=== PATIENT | female | born 1935 | race Caucasian/White ===

== ENCOUNTER 2019-02-07 08:42 | Emergency (ER) | payer OTHER ==
[2019-02-07] MEDS ORDERED: MORPHINE SULFATE 10 MG/ML INJ IV ONE ×2 (09:45→19:50)
--- NOTE | 2019-02-07 10:44 | RADIOLOGY REPORT (SQ) ---
EXAM DESCRIPTION: CHEST SINGLE VIEW COMPLETED DATE/TIME: 02/07/2019 10:28 am REASON FOR STUDY: injury COMPARISON: None. NUMBER OF VIEWS: One view. TECHNIQUE: Single frontal radiographic view of the chest acquired. LIMITATIONS: None. FINDINGS: LUNGS AND PLEURA: No opacities, masses or pneumothorax. No pleural effusion. MEDIASTINUM AND HILAR STRUCTURES: No masses. Contour normal. HEART AND VASCULAR STRUCTURES: Heart normal in size. Normal vasculature. BONES: No acute findings. HARDWARE: None in the chest. OTHER: No other significant finding. IMPRESSION: NO SIGNIFICANT RADIOGRAPHIC FINDING IN THE CHEST. TECHNICAL DOCUMENTATION: JOB ID: [id number] [employer]- All Rights Reserved Reading location - IP/workstation name: [email or web address]
--- NOTE | 2019-02-07 10:49 | RADIOLOGY REPORT (SQ) ---
EXAM DESCRIPTION: HIP RIGHT AP/LATERAL COMPLETED DATE/TIME: 02/07/2019 10:28 am REASON FOR STUDY: injury COMPARISON: None. NUMBER OF VIEWS: Two views. TECHNIQUE: AP and frog-leg view of the right hip. LIMITATIONS: None. FINDINGS: MINERALIZATION: Normal. RIGHT HIP: There is a comminuted intratrochanteric right hip fracture. OPPOSITE HIP: No fracture or dislocation. No worrisome bone lesions. SOFT TISSUES: No findings. OTHER: No other significant finding. IMPRESSION: Comminuted intratrochanteric right hip fracture. COMMENT: Pelvic fractures are often occult on plain radiographs. If strong clinical suspicion for f racture, recommend CT or MR. TECHNICAL DOCUMENTATION: JOB ID: [id number] [employer]- All Rights Reserved Reading location - IP/workstation name: [email or web address]
--- NOTE | 2019-02-07 10:49 | RADIOLOGY REPORT (SQ) ---
EXAM DESCRIPTION: KNEE RIGHT 3 VIEWS COMPLETED DATE/TIME: 02/07/2019 10:28 am REASON FOR STUDY: injury COMPARISON: None. NUMBER OF VIEWS: Three views. TECHNIQUE: AP, lateral, and sunrise patella radiographic images acquired of the right knee. LIMITATIONS: None. FINDINGS: MINERALIZATION: Normal. BONES: No acute fracture or dislocation. No worrisome bone lesions. JOINT: Prior total knee arthroplasty. SOFT TISSUES: No soft tissue swelling. No radio-opaque foreign body. OTHER: No other significant finding. IMPRESSION: Postsurgical changes with prior total arthroplasty. No acute findings. TECHNICAL DOCUMENTATION: JOB ID: [id number] [employer]- All Rights Reserved Reading location - IP/workstation name: [email or web address]
[2019-02-07 11:23] LABS: ABSOLUTE LYMPHOCYTES (AUTO) 1.1 10^3/uL (0.5-4.7); ABSOLUTE MONOCYTES (AUTO) 0.5 10^3/uL (0.1-1.4); ABSOLUTE NEUT (AUTO) 7.2 10^3/uL (1.7-8.2); BASOPHILS % (AUTO) 0.3 % (0-2); EOSINOPHILS % (AUTO) 0.4 % (0-6); HEMATOCRIT 34.1 % (36.0-47.0); HEMOGLOBIN 11.2 g/dL (12.0-15.5); LYMPHOCYTES % (AUTO) 12.2 % (13-45); MEAN CORPUSCULAR HEMOGLOBIN 30.4 pg (27.0-33.4); MEAN CORPUSCULAR HGB CONC 32.8 g/dL (32.0-36.0); MEAN CORPUSCULAR VOLUME 93 fl (80-97); PLATELET COUNT 255 10^3/uL (150-450); RED BLOOD COUNT 3.68 10^6/uL (3.72-5.28); RED CELL DISTRIBUTION WIDTH 13.7 % (11.5-14.0); SEGMENTED NEUTROPHILS % (AUTO) 81.1 % (42-78); TOTAL CELLS COUNTED % (AUTO) 100 %; WHITE BLOOD COUNT 8.9 10^3/uL (4.0-10.5)
[2019-02-07 11:46] LABS: ANION GAP 8 (5-19); BLOOD UREA NITROGEN 47 mg/dL (7-20); CALCIUM 9.8 mg/dL (8.4-10.2); CARBON DIOXIDE 27 mmol/L (22-30); CHLORIDE 103 mmol/L (98-107); GLUCOSE 117 mg/dL (75-110); POTASSIUM 4.6 mmol/L (3.6-5.0)
[2019-02-07 11:49] LABS: INTERNATIONAL RATION (INR) 1.07
[2019-02-07 11:50] LABS: PARTIAL THROMBOPLASTIN TIME 31.5 SEC (23.5-35.8)
--- NOTE | 2019-02-07 12:33 | ER Document Report ---
ED Fall - General Chief Complaint: Fall Stated Complaint: FALL INJURY Time Seen by Provider: 02/07/19 09:31 - HPI Notes: This is an 83-year-old female who presents with a complaint of a fall that occurred today. Patient states that she was using her power chair as a walker. She states she lost her footing and fell. She landed on her right hip. Patient has a history of amnesia and so does not require movement much. The , however notes that he had just gone to the bathroom when he heard her fall in the [place]. he rushed to her . She was awake. She denied hitting her head. She denies any other injuries. Describes her symptoms as moderate. - Related data Allergies/Adverse Reactions: Penicillins Allergy (Verified 02/07/19 09:25) Sulfa (Sulfonamide Antibiotics) Allergy (Verified 02/07/19 09:25) Home Medications: hydromorophone. 5 mg Past Medical History - Social History Smoking Status: Never Smoker Chew tobacco use (# tins/day): No Drug Abuse: None Family History: Reviewed & Not Pertinent Patient has suicidal ideation: No Patient has homicidal ideation: No Review of Systems - Review of Systems Cardiovascular: denies: Chest pain Respiratory: denies: Cough Gastrointestinal: denies: Abdomen distended, Abdominal pain Genitourinary: denies: Flank pain Female Genitourinary: Other - Right hip pain -: Yes All other systems reviewed and negative Physical Exam - Vital signs Vitals: Temp Pulse Resp BP Pulse Ox 97.7 F 54 L 16 112/53 L 96 02/07/19 08:56 02/07/19 08:56 02/07/19 08:56 02/07/19 08:56 02/07/19 08:56 - General General appearance: Appears well, Alert - HEENT Head: Normocephalic, Atraumatic Eyes: Normal Pupils: PERRL - Respiratory Respiratory status: No respiratory distress Chest status: Nontender Breath sounds: Normal Chest palpation: Normal - Cardiovascular Rhythm: Regular Heart sounds: Normal auscultation Murmur: No - Abdominal Inspection: Normal Distension: No distension Bowel sounds: Normal Tenderness: Nontender Organomegaly: No organomegaly - Extremities Notes: Tenderness of the right hip. Slight shortening of the right lower extremity. Normal distal neurovascular exam of the right lower extremity. There is minimal tenderness of the right knee. No ligamentous laxity. Course - Re-evaluation Re-evalutation: 02/07/19 10:31 Picture suggest mechanical fall. Differential diagnosis includes kidney contusion versus hip fracture. 1132 X-rays consistent with right intertrochanteric fracture. Discussed plan with patient. [facility] because she lives in [place]. 1205 Patient's care discussed with Dr. Pierson, orthopedics at [facility]. He accepts transfer. Wants hospitalist service to admit the patient. Patient's care discussed with Dr. Pabon. He accepts transfer. 02/07/19 16:08 Patient reevaluated. Patient is doing well. She is stable for transfer. - Vital Signs Vital signs: Temp Pulse Resp BP Pulse Ox 98.8 F 54 L 17 119/72 100 02/07/19 15:31 02/07/19 08:56 02/07/19 16:00 02/07/19 15:31 02/07/19 14:01 - Laboratory Result Diagrams: 02/07/19 11:00 02/07/19 11:00 Laboratory results interpreted by me: 02/07/19 02/07/19 11:00 11:00 RBC 3.68 L Hgb 11.2 L Hct 34.1 L Lymph % (Auto) 12.2 L Seg Neutrophils % 81.1 H BUN 47 H Creatinine 1.39 H Est GFR ( Amer) 44 L Est GFR (MDRD) Non-Af 36 L Glucose 117 H Discharge - Discharge Clinical Impression: Intertrochanteric fracture of right hip Qualifiers: Encounter type: initial encounter Fracture type: closed Fracture alignment: nondisplaced Qualified Code(s): S72.144A - Nondisplaced intertrochanteric fracture of right femur, initial encounter for closed fracture Condition: Fair Disposition: Tertiary-Other
[2019-02-07 20:04] VITALS: BP 148/78
== END 2019-02-07 20:04 | disposition short-term general hospital (02) ==
LOC: ER 08:42
DX: S72.144A Nondisplaced intertrochanteric fracture of right femur, initial encounter for closed fracture (principal); M25.551 Pain in right hip; W19.XXXA Unspecified fall, initial encounter
CPT/HCPCS: 36415; 85025; 85610; 85730; 80048; 71045; 73502; 73562; J2270; 96374; 96376; 99283